=== PATIENT | male | born 1990 | race Two or more races ===

== ENCOUNTER 2023-11-30 12:11 | Emergency (ER) | payer MEDICAID, OTHER ==
[~2023-11-30] VITALS: Ht 180.3 cm; Wt 104.0 kg
[2023-11-30 12:43] VITALS: BP 150/100; TEMP 98.3
[2023-11-30 12:45] VITALS: PULSE 73; RESP 18; O2SAT 96
[2023-11-30] MEDS ORDERED: CEPH500C PO (13:01)
[2023-11-30] MEDS ORDERED: TRIA0.02 TOP (13:01)
== END 2023-11-30 13:28 | disposition home or self-care (01) ==
LOC: ER 12:11
DX: S90.861A Insect bite (nonvenomous), right foot, initial encounter (principal); Z79.899 Other long term (current) drug therapy; W57.XXXA Bitten or stung by nonvenomous insect and other nonvenomous arthropods, initial encounter; Y93.89 Activity, other specified; Y92.89 Other specified places as the place of occurrence of the external cause; Y99.8 Other external cause status
CPT/HCPCS: 73620